=== PATIENT | female | born 2000 | race Caucasian/White ===

== ENCOUNTER 2024-02-07 22:38 | Emergency (ER) | payer BC ==
[~2024-02-07] VITALS: Ht 172.7 cm; Wt 59.1 kg
[2024-02-07] MEDS ORDERED: AMPH20TA3 PO (22:54)
[2024-02-07 22:59] VITALS: BP 123/74; PULSE 80; RESP 16; TEMP 98.3; O2SAT 99
[2024-02-10] MEDS ORDERED: AMPH20TA3 PO (20:14)
== END 2024-02-07 23:00 | disposition home or self-care (01) ==
LOC: EEVIPCON 22:39 → ER 22:39
DX: Z76.0 Encounter for issue of repeat prescription (principal); F90.9 Attention-deficit hyperactivity disorder, unspecified type
CPT/HCPCS: 99281